=== PATIENT | female | born 1990 | race Caucasian/White ===

== ENCOUNTER 2016-10-26 11:01 | Emergency (ER) | payer BC ==
[~2016-10-26] VITALS: Ht 167.6 cm; Wt 77.3 kg
[~2016-10-26 11:01] MED LIST: AMOXICILLIN 50500 MG PO; AMOXICILLIN 8751 TAB PO; BIRTH CONTROL; CLEOCIN HCL300 MG PO; IMPLANON68 MG ID; LORTAB 5/500 501 TAB PO; NO HOME MEDICATIONS; NORCO 325 MG-51 TAB PO; PERCOCET 325 MG1 TA2 PO; PREDNISONE20 MG PO; PRO AIR INHALER; PROVENTIL0.09 MG/A1 IH; STEROID INHALER; ULTRAM 50MG TAB50 MG PO; VENTOLIN0.09 MG IH; VICODIN 5/5001 UDTAB PO
[2016-10-26 11:04] VITALS: BP 98/70; PULSE 89; TEMP 98
[2016-10-26] MEDS ORDERED: PREDNISONE20 MG PO (11:52)
[2016-10-26] MEDS ORDERED: ALLEGRA-D 24HR1 T24 PO (11:52)
== END 2016-10-26 12:02 | disposition home or self-care (01) ==
LOC: COL.ER 11:01
DX: J45.901 Unspecified asthma with (acute) exacerbation (principal); F17.200 Nicotine dependence, unspecified, uncomplicated
CPT/HCPCS: J7512

== ENCOUNTER 2024-03-01 11:34 | Emergency (ER) | payer BC ==
[~2024-03-01] VITALS: Ht 167.6 cm; Wt 89.1 kg
[~2024-03-01 11:34] MED LIST changes: +ALLEGRA-D 24HR1 T24 PO
[2024-03-01 11:48] VITALS: TEMP 97.1
[2024-03-01 12:49] LABS: BASO # 0.1 K/mm3 (0.0-0.2); BASO % 0.8 % (0.0-2.0); EOS # 0.2 K/mm3 (0.0-0.7); EOS % 2.3 % (0.0-4.0); GRAN # 6.1 K/mm3 (1.4-6.5); GRAN % 66.1 % (42.2-75.2); HEMATOCRIT 40.9 % (37.0-47.0); HEMOGLOBIN 14.4 g/dl (12.5-16.0); LYMPH # 2.1 K/mm3 (1.2-3.4); LYMPH % 23.2 % (20.0-51.0); MEAN CELL VOLUME 85 fl (80.0-100.0); MEAN CORPUSCULAR HEMOGLOBIN 30 pg (27-31); MEAN CORPUSCULAR HGB CONC 35 g/dl (33.0-37.0); MONO # 0.7 K/mm3 (0.1-0.6); MONO % 7.3 % (1.7-9.3); PLATELET COUNT 385 K/mm3 (130-400); RED BLOOD COUNT 4.83 M/mm3 (4.10-5.30); REDCELL DISTRIBUTION WIDTH-CV 11.9 % (11.5-14.5)
[2024-03-01 13:09] LABS: ALBUMIN 4.1 g/dL (3.5-5.0); BILIRUBIN,TOTAL 0.6 mg/dL (0.2-1.2); C-REACTIVE PROTEIN 0.15 mg/dL (0.00-0.50); CALCIUM 9.6 mg/dL (8.4-10.2); CREATININE, serum 0.76 mg/dL (0.57-1.11); POTASSIUM 3.9 mEq/L (3.5-4.5); TOTAL PROTEIN 7.7 g/dl (6.2-8.1)
[2024-03-01] MEDS ORDERED: Ondansetron 4 MG/2 ML VIAL IV ONE (13:30)
[2024-03-01] MEDS ORDERED: NS 1,000 ML IV ONE (13:30)
[2024-03-01] MEDS ORDERED: Pantoprazole 40 MG in NS 10 ML IV ONE (13:30)
[2024-03-01] MEDS ORDERED: Morphine 4 MG/ML VIAL IV ONE (13:30)
[2024-03-01] MEDS ORDERED: Ketorolac 30 MG/ML VIAL IV ONE (14:45)
[2024-03-01 15:17] LABS: COLLECTION METHOD CLEAN CATCH
[2024-03-01 15:20] LABS: URINE APPEARANCE CLEAR (CLEAR/HAZY); URINE BLOOD NEGATIVE (NEGATIVE); URINE COLOR YELLOW (YELLOW); URINE GLUCOSE NEGATIVE (NEGATIVE); URINE KETONE 1+ (NEGATIVE); URINE NITRATE NEGATIVE (NEGATIVE); URINE PROTEIN(semi-quant) NEGATIVE (NEGATIVE); URINE UROBILINOGEN 0.2 E.U/dL (0.2-1.0)
[2024-03-01] MEDS ORDERED: Iohexol 300 - 100 ML VIAL IV ONE (15:44)
[2024-03-01] MEDS ORDERED: NS 100 ML IV SCH (15:45)
[2024-03-01] MEDS ORDERED: PRIL40 PO (16:18)
[2024-03-01 16:58] VITALS: BP 99/83; PULSE 81
== END 2024-03-01 16:52 | disposition home or self-care (01) ==
LOC: COL.ER 11:34
PROVIDERS: Nurse Practitioner
DX: R10.13 Epigastric pain (principal); K08.89 Other specified disorders of teeth and supporting structures; F17.210 Nicotine dependence, cigarettes, uncomplicated
CPT/HCPCS: J1885; J2270; J2405; J2470; J7030; Q9967